=== PATIENT | female | born 1985 | race Caucasian/White ===

== ENCOUNTER 2016-09-02 11:05 | Outpatient (CLI) ==
[2015-01-08 18:39] VITALS: BMI 28.3
[2016-09-02 11:36] LABS: BASOPHILS % (AUTO) 0.5 % (0.0-3.0); EOSINOPHILS # (AUTO) 0.1 K/ul (0.0-0.7); EOSINOPHILS % (AUTO) 1.5 % (0.0-7.0); HEMATOCRIT 40.5 % (37.0-47.0); HEMOGLOBIN 13.5 g/dl (12.0-16.0); IMMATURE GRANULOCYTE % (AUTO) 0.3 % (0.0-5.0); LYMPHOCYTES # (AUTO) 1.8 K/uL (0.60-3.4); LYMPHOCYTES % (AUTO) 27.3 (10.0-50.0); MEAN CORPUSCULAR HEMOGLOBIN 30.1 pg (27.0-31.0); MEAN CORPUSCULAR HGB CONC 33.3 (31.8-35.4); MEAN CORPUSCULAR VOLUME 90.2 fl (81.0-99.0); MONOCYTES # (AUTO) 0.5 K/uL (0.4-2.0); MONOCYTES % (AUTO) 6.9 (0-10); NEUTROPHILS # (AUTO) 4.1 K/ul (2.0-6.9); NEUTROPHILS % (AUTO) 63.5; PLATELET COUNT 227 10^3/uL (140-440); RED BLOOD COUNT 4.49 10^6/ul (4.20-5.40); WHITE BLOOD COUNT 6.51 K/ul (4.6-10.2)
[2016-09-02 11:58] LABS: ALBUMIN 3.7 g/dL (3.4-5.0); ANION GAP 10.1; BILIRUBIN,TOTAL 0.43 mg/dL (0.00-1.20); BUN/CREATININE RATIO 16.86; CALCIUM 8.7 mg/dL (8.2-10.2); CREATININE 0.83 mg/dL (0.60-1.30); POTASSIUM 4.1 mmol/L (3.5-5.10); TOTAL PROTEIN 7.4 g/dL (6.4-8.2)
--- NOTE | 2016-09-02 12:01 | DI ---
EXAM: Supine abdominal radiograph. HISTORY: Generalized abdominal pain. COMPARISON: None available. FINDINGS: Air and a moderate amount of stool seen throughout the colon. No dilated bowel loops are seen. No masses or abnormal calcifications identified. Fat planes are maintained. Osseous struct ures are intact. IMPRESSION: No acute radiographic abnormality of the abdomen.
== END 2016-09-02 11:06 | disposition home or self-care (01) ==
LOC: LAB 11:05
PROVIDERS: ATTEND Nurse Practitioner Family
DX: R10.84 Generalized abdominal pain (principal); R31.9 Hematuria, unspecified
CPT/HCPCS: 36415; 80053; 85025

== ENCOUNTER 2016-11-19 12:27 | Outpatient (CLI) | payer OTHER ==
[2015-01-08 18:39] VITALS: BMI 28.3
[2016-11-19 13:17] LABS: CHOL/HDL RATIO 2.9 (4.5-5.5)
== END 2016-11-19 12:28 | disposition home or self-care (01) ==
LOC: CAR 12:27
PROVIDERS: ATTEND Nurse Practitioner Family
DX: E66.3 Overweight (principal)
CPT/HCPCS: 36415; 80061; 84443; 93005; 93010

== ENCOUNTER 2017-04-24 14:06 | Outpatient (CLI) ==
[2015-01-08 18:39] VITALS: BMI 28.3
== END 2017-04-24 14:07 | disposition home or self-care (01) ==
LOC: OUTPT 14:06
PROVIDERS: ATTEND Nurse Practitioner Family
DX: J02.9 Acute pharyngitis, unspecified (principal)